=== PATIENT | female | born 1935 | race Caucasian/White ===

== ENCOUNTER 2017-06-20 09:31 | Outpatient (CLI) | payer BC ==
[~2017-06-20] VITALS: Ht 180.3 cm; Wt 79.1 kg
[~2017-06-20 09:31] MED LIST: ASPI-664 PO; COLE500G2 PO; FENO160T13 PO; GLIP5TAB13 PO; LISI10TA2 PO; METF500T4 PO; MULT1TAB59 PO
[2017-06-20 09:39] VITALS: BP 126/59; PULSE 95; RESP 18; Ht 180.3 cm; Wt 79.1 kg
[2017-06-20] MEDS ORDERED: LISI-313 PO (09:45)
[2017-06-20] MEDS ORDERED: METF-480 PO (09:45)
--- NOTE | 2017-06-20 10:34 | CONS ---
Date/Time of Note Date/Time of Note DATE: 06/20/17 TIME: 10:27 Assessment/Plan Assessment/Plan Additional Assessment/Plan [facility] INITIAL OUTPATIENT CONSULTATION NOTE DATE OF CONSULTATION: 06/20/17 PLACE OF SERVICE: [facility] ASSESSMENT AND PLAN: A very-pleasant 82 y/o lady well known to me from a year ago when she had gallstone pancreatitis, presenting with possible symptomatic biliary colic. I still strongly recommended a lap karsten and patient agreed. Answered all questions and consented her for the operation. With above assessment, I've recommended the followin. Elective lap karsten after her trip to [place] Thank you very much for having me involved in the care of this very pleasant patient and wonderful family. If you have any questions, please feel free to contact me at [phone]. Nature of presenting problem: moderate severity Please note that, given the multiple number of diagnoses or management options, the moderate amount and/or complexity of data needed to be reviewed, and moderate risk of complications and/or morbidity or mortality, this qualifies as high complexity type of decision-making. Disclaimers: 1. Inadvertent spelling and grammatical errors are likely due to electronic health record (EHR)/dictation software used and do not reflect on the quality of delivered patient care. 2. The electronic timestamp recorded on this note does not necessarily reflect the actual date and time of the visit or the service. 3. Portions of this note may have been created through electronic templates and computer algorithms that might bring in information either from the system or from other physicians and providers. Please note that such information may or may not contain errors, the occurrence of which are outside of my control. In general (but not always) this happens either in the beginning or at the end of the note. The portion of the note that I have created are generally done in 1 continuous block of text, flanked at the beginning and at the end by " ", and entered into one field in the EHR. 4. There may be other unanticipated errors in the note that are outside of my control. I can only attest to the portions of the note that I have created. Updated clinical summary: A very-pleasant, 81-year-old lady with comorbid issues, including hypertension, diabetes, and dyslipidemia who was admitted to [facility] on 05/18/2016 with what appeared to be gallstone pancreatitis. The patient's initial lipase level of 27,000 came down over the next few days, and the patient appeared to be clinically much improved. patient's images, including abdominal and pelvic CT, gallbladder ultrasound and MRI all pointed to significant cholelithiasis, without obvious evidence of pancreatic duct dilatation or a mass in the head of the pancreas. The common bile duct appeared to be normal and there was no major obvious evidence of choledocholithiasis. At that time, I strongly suggested that she undergo a laparoscopic cholecystectomy. The patient was hesitant and did not agree. I explained to her that the purpose for the operation was mainly a preventative reason to reduce the chance of repeat pancreatitis, up 30% of patients in her clinical condition, to approximately 0%, which is a normal risk in the general population. The patient appeared to understand and still wanted to wait a bit before deciding on the surgical intervention. D/c home 05/22/16 and repeat visit with me in the outpatient setting later that month resulted in the same decision by her. Returned a year later with one epidose on RUQ pain during a trip to [facility] May 2017. Comorbidities: 1. Hypertension 2. Diabetes mellitus with stage 3 chronic kidney disease; GFR 30-59; neuropathy ; peripheral artery disease 3. Dyslipidemia 4. Sigmoid diverticulosis without evidence of acute diverticulitis (CT abd/ pelvis [facility] 05/18/16) 5. Aortic vascular calcifications (CT abd/pelvis [facility] 05/18/16) 6. 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 Anemia 8. Cholelithiasis 9. Caloric malnutrition (reported in the chart, but no other obvious evidence; albumin 4.5 03/29/17) 10. Osteoarthritis of knee, unilateral 11. Shingles, for which the patient was treated with Valtrex and prednisone May 2016 12. Gallstone pancreatitis with hospitalization at [facility] May 2016 CONSULTATION REQUESTED BY: Michael Rodriguez MD Dear Dr. Rodriguez, Thank you very much for the oppurtunity to remain involved in the care of this very pleasant lady and her wonderful family. HISTORY OF PRESENT ILLNESS: The patient is a very pleasant 82 y/o lady well knwon to me from last year when she had gallstone pancreatitis, presenting with possible symptomatic biliary colic. RUQ pain occured during a trip to [place]. No hospitalization. Appetite ok. No blood in stool or urine. No pancreatitis. Health has otherwise been stable. No other major symptoms. ALLERGIES: NO KNOWN DRUG ALLERGIES MEDICATIONS Documented in the electronic records and reviewed by me. Please see the electronic records for details. SOCIAL HISTORY: The patient lives with her family. She does not report any smoking, drinking, or intravenous drug use. FAMILY HISTORY: There is no pertinent medical, surgical or malignancy reported in the family by the patient or in her chart. REVIEW OF SYSTEMS: An otherwise complete 14-point review of systems was negative for pertinent positives or pertinent negatives. PHYSICAL EXAMINATION GENERAL: The patient appears to be a very-pleasant, lady of non- descent, appearing stated age, sitting in a chair comfortably and in no acute distress. VITAL SIGNS: BMI 24.3 VPH 06/20/17 (previously 24.6 VPH May 2016), afebrile and vital signs are stable. HEENT: Head is normocephalic and atraumatic. Her extraocular muscles and hearing are grossly intact bilaterally and symmetrically. Her sclerae are nonicteric. Her oral cavity is clear and her oral mucosa appeared to be pink and moist. She has fair to poor dentition with some missing teeth. NECK: Supple. There is no lymphadenopathy or JVD. There is no submental, submandibular or supraclavicular lymphadenopathy. CHEST: Rises symmetrically with each breath and she is breathing comfortably. There are no audible wheezes, rales or rhonchi on the gross exam. Carotid pulses are palpable in her neck bilaterally and symmetrically. HEART: Radial pulse is palpable on the left wrist. Lower extremities contain no pitting edema around the ankles bilaterally and symmetrically. ABDOMEN: Soft, nondistended, and non-tender to palpation. There are no peritoneal signs or guarding. SKIN: Appears to be pink and feels warm to touch. NEUROLOGIC: Awake, alert, and follows commands appropriately. LABORATORY VALUES: May 2016: White blood cell count 15.6, down from 29.6 on admission; hemoglobin 11.4; platelets 229. Electrolytes are normal. CO2 22, creatinine 1.90 down from 2.07 yesterday. Total bilirubin 0.2; AST 49; ALT 86; alkaline phosphatase 60; albumin 3.2; amylase 467; lipase 1,603. Mar 2017: unremarkable; Cr 1.43. IMAGING: See electronic chart. Please note that I've personally reviewed all pertinent available images and I agree in general with their overall reported findings. Consultation Date/Type/Reason Admit Date/Time Exam/Review of Systems Vital Signs Vitals Vital Signs Date Time Temp Pulse Resp B/P Pulse Ox O2 Delivery O2 Flow Rate FiO2 06/20/17 09:39 97.8 95 18 126/59 94 Room Air HARSH WOOD M.D. Jun 20, 2017 10:34
== END 2017-06-20 15:51 | disposition home or self-care (01) ==
LOC: HPC 09:31
PROVIDERS: ATTEND Transplant Surgery
DX: K85.10 Biliary acute pancreatitis without necrosis or infection (principal); I10 Essential (primary) hypertension; E11.9 Type 2 diabetes mellitus without complications; E78.5 Hyperlipidemia, unspecified; D64.9 Anemia, unspecified; M17.10 Unilateral primary osteoarthritis, unspecified knee; E46 Unspecified protein-calorie malnutrition
CPT/HCPCS: G0463

== ENCOUNTER 2017-07-24 05:52 | Observation (INO) | payer BC ==
[2017-07-24] VITALS (28 sets, daily range): BP systolic 92–150; BP diastolic 36–80; PULSE 18–88; RESP 15–20; Ht 177.8 cm; Wt 73.8 kg
[~2017-07-24] VITALS: Ht 177.8 cm; Wt 73.8 kg
[~2017-07-24 05:52] MED LIST changes: +LISI-313 PO; -LISI10TA2 PO; +METF-480 PO; -METF500T4 PO
[2017-07-24] MEDS ORDERED: CEFAZOLIN 2 GM/50 ML (PMX) 50 ML IVPB SCH (06:30)
[2017-07-24] MEDS ORDERED: D5W-0.45 NACL + KCL 20 MEQ 1,000 ML IV SCH (06:30)
[2017-07-24] MEDS ORDERED: BUPIVACAINE 0.5%/EPI (SDV) 30 ML INJ ONE (06:55)
--- NOTE | 2017-07-24 07:33 | HPN ---
Date/Time of Note Date/Time of Note DATE: 07/24/17 TIME: 07:33 Interval H&P Admission Note Pt. seen H&P reviewed: No system changes Pt. seen H&P reviewed. No system changes (I attest that I have seen and examined the patient and reviewed the operation in detail, as well as its risks , benefits and alternatives of the operation). I attest that I have seen and examined the patient and reviewed in detail the operation, and its associated risks, benefits and alternative. I have answered all the patient's questions to the best of my ability and the patient wishes to proceed. Please refer to rest of electronic medical record for additional updates. HARSH WOOD M.D. Jul 24, 2017 07:33
[2017-07-24] MEDS ORDERED: LIDOCAINE 2% (SDV) 5 ML INJ ONE (07:36)
[2017-07-24] MEDS ORDERED: GLYCOPYRROLATE 0.4 MG INJ ONE (07:36)
[2017-07-24] MEDS ORDERED: PROPOFOL 20 ML ONE (07:36)
[2017-07-24] MEDS ORDERED: SUCCINYLCHOLINE CHLORIDE 100 MG/5 ML SYG IV ONE (07:36)
[2017-07-24] MEDS ORDERED: ROCURONIUM 50 MG INJ ONE (07:36)
[2017-07-24] MEDS ORDERED: NEOSTIGMINE 3 MG/3 ML SYRINGE ONE (07:37)
[2017-07-24] MEDS ORDERED: MEPERIDINE 100 MG INJ ONE (07:37)
[2017-07-24] MEDS ORDERED: FER325 PO (07:41)
[2017-07-24] MEDS ORDERED: METOCLOPRAMIDE 10 MG INJ ONE (08:09)
[2017-07-24] MEDS ORDERED: ONDANSETRON 4 MG INJ ONE (08:09)
[2017-07-24] MEDS ORDERED: CEFAZOLIN 1 GM INJ ONE (08:09)
[2017-07-24] MEDS ORDERED: EPHEDrine SULFATE 50 MG/5 ML SYG ONE (08:26)
[2017-07-24] MEDS ORDERED: hydrALAzine 20 MG INJ IV PRN (08:30)
[2017-07-24] MEDS ORDERED: OXYCODONE/ACETAMINOPHEN (5/325) TAB PO PRN ×2 (08:30)
[2017-07-24] MEDS ORDERED: EPHEDrine SULFATE 50 MG/5 ML SYG IV PRN (08:30)
[2017-07-24] MEDS ORDERED: METOCLOPRAMIDE 10 MG INJ IV PRN (08:30)
[2017-07-24] MEDS ORDERED: ONDANSETRON 4 MG INJ IV PRN (08:30)
[2017-07-24] MEDS ORDERED: MEPERIDINE 25 MG INJ IV PRN (08:30)
[2017-07-24] MEDS ORDERED: LABETALOL HCL 20MG INJ IV PRN (08:30)
[2017-07-24] MEDS ORDERED: FENTAnyl 50 MCG/ML VIAL IV PRN ×3 (08:30)
[2017-07-24] MEDS ORDERED: DIPHENHYDRAMINE 50 MG INJ IV PRN (08:30)
[2017-07-24] MEDS ORDERED: MIDAZOLAM 1 MG/ML 2 ML INJ IV PRN (08:30)
[2017-07-24] MEDS ORDERED: HYDROmorphONE (0.2 MG/ML) 10ML SYG IV PRN ×3 (08:30)
[2017-07-24] MEDS ORDERED: HYDROmorphONE 1 MG/ML SYG IV PRN (10:30)
[2017-07-24] MEDS ORDERED: DOCUSATE SODIUM 100 MG CAP PO PRN (10:30)
[2017-07-24] MEDS ORDERED: NA PHOSPHATE/BIPHOS 133 ML ENEMA PR PRN (10:30)
[2017-07-24] MEDS ORDERED: BISACODYL 10 MG SUPP PR PRN (10:30)
[2017-07-24] MEDS ORDERED: HYDROCODONE/APAP (5/325) TAB PO PRN ×2 (10:30)
[2017-07-24] MEDS ORDERED: HYDROmorphONE 0.5 MG/0.5 ML SYG IV PRN (10:30)
--- NOTE | 2017-07-24 11:02 | OPR ---
Date/Time of Note Date/Time of Note DATE: 07/24/17 TIME: 11:01 Operative Report Free Text/Dictation [facility] INPATIENT OPERATIVE NOTE PLACE OF SERVICE: [facility] DATE OF SURGERY: 07/24/2017 PREOPERATIVE DIAGNOSIS: 1. Gallstone pancreatitis with hospitalization at [facility] May 2016; known cholelithiasis 2. Hypertension 3. Diabetes mellitus with stage 3 chronic kidney disease; GFR 30-59; neuropathy ; peripheral artery disease 4. Dyslipidemia 5. Aortic vascular calcifications (CT abd/pelvis [facility] 05/18/16) 6. 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 Anemia 8. Cholelithiasis 9. Caloric malnutrition (reported in the chart, but no other obvious evidence; albumin 4.5 03/29/17) 10. Osteoarthritis of knee, unilateral 11. Shingles, for which the patient was treated with Valtrex and prednisone May 2016 12. Sigmoid diverticulosis without evidence of acute diverticulitis (CT abd/ pelvis [facility] 05/18/16) POSTOPERATIVE DIAGNOSIS: 1. Severe chronic cholecystitis with pus in the gallbladder; history of gallstone pancreatitis with hospitalization at [facility] May 2016; known cholelithiasis 2. Hypertension 3. Diabetes mellitus with stage 3 chronic kidney disease; GFR 30-59; neuropathy ; peripheral artery disease 4. Dyslipidemia 5. Aortic vascular calcifications (CT abd/pelvis [facility] 05/18/16) 6. 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 Anemia 8. Cholelithiasis 9. Caloric malnutrition (reported in the chart, but no other obvious evidence; albumin 4.5 03/29/17) 10. Osteoarthritis of knee, unilateral 11. Shingles, for which the patient was treated with Valtrex and prednisone May 2016 12. Sigmoid diverticulosis without evidence of acute diverticulitis (CT abd/ pelvis [facility] 05/18/16) OPERATION: 1. Laparoscopic partial cholecystectomy () 2. Laparoscopic suture closure of opening of cystic duct SURGEON: Harsh Wood M.D. BADGER DISTILLER OPERATOR: None ANESTHESIA: General endotracheal tube anesthesia ANESTHESIOLOGIST: Ron Duff M.D. BRIEF SUMMARY: An otherwise uncomplicated but very challenging laparoscopic partial cholecystectomy was performed with findings of severe chronic cholecystitis with gallbladder full of pus secondary to significant cholelithiasis with 2 very large stones blocking the infundibulum and cystic duct opening of the gallbladder. Updated clinical summary: A very-pleasant, 81-year-old lady with comorbid issues, including hypertension, diabetes, and dyslipidemia who was admitted to [facility] on 05/18/2016 with what appeared to be gallstone pancreatitis. The patient's initial lipase level of 27,000 came down over the next few days, and the patient appeared to be clinically much improved. patient's images, including abdominal and pelvic CT, gallbladder ultrasound and MRI all pointed to significant cholelithiasis, without obvious evidence of pancreatic duct dilatation or a mass in the head of the pancreas. The common bile duct appeared to be normal and there was no major obvious evidence of choledocholithiasis. At that time, I strongly suggested that she undergo a laparoscopic cholecystectomy. The patient was hesitant and did not agree. I explained to her that the purpose for the operation was mainly a preventative reason to reduce the chance of repeat pancreatitis, up 30% of patients in her clinical condition, to approximately 0%, which is a normal risk in the general population. The patient appeared to understand and still wanted to wait a bit before deciding on the surgical intervention. D/c home 05/22/16 and repeat visit with me in the outpatient setting later that month resulted in the same decision by her. Returned a year later with one epidose on RUQ pain during a trip to [facility] May 2017. Comorbidities: 1. Hypertension 2. Diabetes mellitus with stage 3 chronic kidney disease; GFR 30-59; neuropathy ; peripheral artery disease 3. Dyslipidemia 4. Sigmoid diverticulosis without evidence of acute diverticulitis (CT abd/ pelvis [facility] 05/18/16) 5. Aortic vascular calcifications (CT abd/pelvis [facility] 05/18/16) 6. 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 Anemia 8. Cholelithiasis 9. Caloric malnutrition (reported in the chart, but no other obvious evidence; albumin 4.5 03/29/17) 10. Osteoarthritis of knee, unilateral 11. Shingles, for which the patient was treated with Valtrex and prednisone May 2016 12. Gallstone pancreatitis with hospitalization at [facility] May 2016 BRIEF HISTORY: The patient is a very pleasant 82 y/o lady well known to me from a year ago when she had gallstone pancreatitis, presenting with possible symptomatic biliary colic. Please see above summary for further details. I recommended laparoscopic, possible open cholecystectomy both to reduce chances of further gallstone pancreatitis in the future as well as hopefully treat the low-grade symptoms that the patient had which I believed were coming from the gallbladder. We reviewed the operation in detail as well as the risks, benefits , alternatives, and expected outcomes of this operation. After careful consideration of all the risks, benefits, and alternatives, the patient (no family present during any of my discussions with the patient) appeared to understand those risks and wished to proceed with surgery. For a detailed report of my consultation with patient, please refer to my separate consultation note. STATEMENT OF THE INFORMED CONSENT: The patient appeared to understand the risks of the operation to include, but not be limited to risk of postoperative pain and scar tissue, possible infection or bleeding requiring other interventions such as opening the wound, placement of drainage catheters, or other operative interventions; possible injury to surrounding to structures including bowel, bladder, bile duct, or blood vessels, or solid organs such as liver, kidney, or pancreas requiring other interventions or procedures; possible leakage of bile from surgical clip sites, suture lines, or worse, from common bile duct injury, causing significant increase in morbidity and mortality and requiring multiple interventions including but not limited to, placement of drainage catheters, imaging studies, as well as operative interventions; possible other source of sepsis such as urinary tract infections or pneumonias, or other sources of potentially life threatening problems such as deep venous thrombus formation causing pulmonary embolism, myocardial arrhythmias and infarctions, and even . After careful consideration of all their options, the patient appeared to understand and wished to proceed with surgery. DESCRIPTION OF PROCEDURE: After obtaining informed consent, the patient was brought into the operating room and was placed in a normal supine position, where successful general endotracheal tube anesthesia was performed. The patient 's abdominal skin was prepped and draped, from the nipple line down to the level of the groins, in the usual sterile fashion. Intravenous access was already in place, and appropriately chosen and dosed prophylactic intravenous antimicrobials were administered. We then called a surgical time-out where patient's identification, date of , nature of the operation, allergies, presence of intravenous antimicrobials, presence of needed equipment, and any other concerns were reviewed and agreed upon by all members of the operating room team. We then started the operation by placing a 5-mm skin incision in the right- upper quadrant, subcostal midclavicular line, and introduced a 5-mm [employer] trocar into the peritoneal space, visualizing all the layers of the abdominal wall as we entered. Note that there was no indication of any injury to underlying structures once we entered the peritoneum. We insufflated the abdominal cavity to a maximum pressure of 15 mmHg, again, confirmed lack of any injury to underlying structures prior to visualizing the rest of the abdominal cavity. We found omentum essentially covering the area of the right upper quadrant especially the right edge of liver. There was also omental adhesions up to the midline below the umbilicus. There was no evidence of malignancy. No evidence of calcifications or significant issues with other obvious abnormalities. The liver appeared to be healthy. With this information, we went a head and placed the other trocars under direct visualization, after injecting their sites with 0.5% Marcaine with epinephrine, placing a 5-mm trocar in the umbilical midline area, a 5-mm trocar in the right anterior axillary line, and a 12-mm trocar in the midline subxiphoid region. With our instruments in place, we had excellent visualization and access to the right-upper quadrant. We then started a very meticulous and prolonged process of doing adhesio lysis and dissection in order to be able to take the omental adhesions off of what we believed to be the body of the gallbladder. This area appeared to be significantly scarred and indicated chronic cholecystitis for a prolonged period of time. The body of the duodenum was plastered to the medial aspect of the swollen gallbladder. The transverse colon was close to but not densely adherent onto the gallbladder wall itself. With very careful dissection, I was able to slowly dissect the omentum off the body of the gallbladder and moving from a lateral to medial position eventually the body of duodenum from the medial aspect of the gallbladder. At this point, pus started pouring out of the body of the gallbladder and we suctioned all of this of without any spillage. There was no bile within the gallbladder. There were several stones within the gallbladder, 2 of which were significant in size and appeared to be completely blocking the infundibulum and opening of the cystic duct. I used a stone single wire saw operator and removed all the smaller gallstones. We then dislodged the 2 large stones and laid them in the right gutter in a place where we could find them later. We also had put in up to 2 Raytek in the abdominal cavity and used these to help push the liver up to gain exposure as well as to maintain hemostasis. There was thickening of gallbladder wall, but this was mainly associated with the stones that were present. No obvious overt signs of malignancy existed. After very careful study of the anatomic structures, I decided not to continue the dissection down towards the cystic duct since essentially the entire area was fused onto the shazia hepatis. In my opinion, further dissection would endanger the structures and would not have meaningful benefit for the patient. I used cautery to remove the dissected gallbladder off the shazia hepatis leaving enough edges in order for us to perform laparoscopic suture closure of this area which we accomplished using 3-0 Vicryl sutures. This came together very nicely and there was no leakage of bile and the area appeared to be hemostatic. There was also no concern of injury to underlying shazia hepatis structures in the liver appear to remain viable without any color change. I then used an Endo Catch bag to remove both the partial cholecystectomy specimen as well as the 2 large stones which we crushed inside of the bag and removed through the 12 mm trocar site without having to make the site larger. The specimen was sent along with the gallstones to pathology for permanent sections. We then returned to the abdominal cavity and placed a 19 Wolof Mario drain through the right upper quadrant 5 mm trocar sites, fixing the drain to skin using 2-0 nylon suture and laying the tip of the drain in the area of the surgical dissection site near the shazia hepatis and the cystic duct closure. We then ensured that there was adequate hemostasis and bile-stasis prior to removal of all of or equipment, including the 2 Raytek that we had an side as well as the pneumoperitoneum, and then reapproximating the 12-mm trocar site with one [id number] 0 Vicryl suture, followed by washing the wounds with copious amounts of normal saline, and then reapproximating the skin using interrupted 4-0 Monocryl sutures. Light dressing was then applied. At the end of the operation, both the sponge count and needle count were reportedly correct x2. The patient tolerated the procedure without any reported complications. Please note that this operation qualifies for modifier 22 given the degree of difficulty of the case as well as the complexity of decision making. ESTIMATED BLOOD LOSS: 30 mL BLOOD OR BLOOD PRODUCT TRANSFUSIONS: None to my knowledge. SPECIMENS: 1. Gallbladder GRAFTS: None COMPLICATIONS: None. DISPOSITION: Recovery area. Disclaimers: 1. Inadvertent spelling and grammatical errors are likely due to electronic health record (EHR)/dictation software used and do not reflect on the quality of delivered patient care. 2. The electronic timestamp recorded on this note does not necessarily reflect the actual date and time of the visit or the service. 3. Portions of this note may have been created through electronic templates and computer algorithms that might bring in information either from the system or from other physicians and providers. Please note that such information may or may not contain errors, the occurrence of which are outside of my control. In general (but not always) this happens either in the beginning or at the end of the note. The portion of the note that I have created are generally done in 1 continuous block of text, flanked at the beginning and at the end by " ", and entered into one field in the EHR. 4. There may be other unanticipated errors in the note that are outside of my control. I can only attest to the portions of the note that I have created. HARSH WOOD M.D. Jul 24, 2017 11:02
--- NOTE | 2017-07-24 14:18 | CONS ---
Date/Time of Note Date/Time of Note DATE: 07/24/17 TIME: 14:08 Assessment/Plan Assessment/Plan Chief Complaint/Hosp Course 82-year-old female with a known history of gallstone pancreatitis, diverticulosis without diverticulitis, type 2 diabetes, hypertension, hyperlipidemia who was brought to [facility] for laparoscopic cholecystectomy. 1.Cholecystitis/cholelithiasis with gallbladder empyema. Status post Laparoscopic partial cholecystectomy-07/24/2017. -Postoperative antibiotics, anticoagulation, and diet per surgery team. -Continue pain medications PRN. 2. Type 2 diabetes. -Obtain A1c. Hold oral agents and patient will be started on Accu-Cheks/ISS/ Lantus in-house. 3. Essential hypertension. Stable. -Resume home medications. 4. Hypercholesterolemia/triglyceridemia. -Resume home medications. 5. Iron deficiency anemia. -Resume oral iron supplements. Monitor H&H. DVT prophylaxis: Per surgery. Rest of the recommendation depends on hospital course. Approximately 60 minutes was spent on this consultation. Thank you for allowing us to partake in the care of this pleasant lady. Patient was seen in collaboration with . Problems: Consultation Date/Type/Reason Admit Date/Time Jul 24, 2017 at 10:48 Type of Consultation: Internal medicine/hospitalist Reason for Consultation Postoperative medical management Referring Provider: HARSH WOOD M.D. Hx of Present Illness This is a very pleasant 82-year-old female with a past medical history of hypertension, hypercholesterolemia, type 2 diabetes, hysterectomy, gallstone pancreatitis, diverticulosis without diverticulitis, who was brought to [facility] for laparoscopic cholecystectomy. Apparently, patient was admitted at [facility] a year ago and at that time she was treated for gallstone pancreatitis with the recommendation of eventual cholecystectomy as outpatient. However, patient was not able to follow-up with outpatient surgery team until a year later then she had another episode of right -sided abdominal pain while she was having a trip to [place] in May 2017. Hospitalist consult was requested for postoperative medical management. At my encounter with the patient, she denied any chest pain, palpitation, shortness of breath, nausea, vomiting, abdominal pain, diarrhea, constipation, fever, chills, loss of consciousness or other constitutional symptoms. Patient is now postoperative from laparoscopic cholecystectomy. Currently there is no labs to review. Patient has a POC glucose of 191. A 12 point review of system was assessed and is negative other than what is mentioned in HPI. Past Medical History See HPI Past Surgical History See HPI Social History Former smoker. No other substance abuse history or alcohol history. Smoking Status: Former smoker Exam/Review of Systems Vital Signs Vitals Vital Signs Date Time Temp Pulse Resp B/P Pulse Ox O2 Delivery O2 Flow Rate FiO2 07/24/17 13:18 98.0 87 18 136/63 99 Nasal Cannula 2.0 Exam General: Well developed,adequately built, not in any acute distress . HEENT: Normocephalic, Atraumatic, No laceration or hematoma; Eyes: PEERL, Conjunctiva clear, Anicteric sclera Neck: Supple without any lymphadenopathy, nontender, no JVD, no carotid bruits, trachea midline, no thyromegaly Cardiac: S1, S2 auscultated, regular rhythm and rate, no mumurs or gallop Pulmonary: Normal respiratory effort. Chest clear to auscultation bilaterally, no adventitious breath sounds GI: Laparoscopic abdominal incision site with intact dressing. Very minimal tenderness to surgical area. Abdomen normal to inspection. Soft, non- distended, no masses, no rebound tenderness or guarding. Bowel sounds active on all four quadrants Genitourinary: Deferred Extremities: No cyanosis, clubbing, or edema. Pulses [2+] bilaterally. Full ROM on all four extremities. No focal weakness appreciated. Neurologic: Alert to person, place, time, and situation. Affect appropriate, intact sensation. Skin: Clean,dry, and intact. No ecchymosis, no rashes, or lesions Results Results 24 hrs Laboratory Tests Test 07/24/17 06:50 07/24/17 11:47 Bedside Glucose 135 191 Medications Medications Current Medications Cefazolin Sodium/ Dextrose (Ancef 2 Gm/50 ml (Pmx)) 50 ml @ 100 mls/hr OC IVPB ; Start 07/24/17 at 06:30; Stop 07/24/17 at 19:00 Acetaminophen/ Hydrocodone Bitart ([place] (5/325)) 1 tab Q4H PRN PO PAIN LEVEL 4 -7; Start 07/24/17 at 10:30 Acetaminophen/ Hydrocodone Bitart ([place] (5/325)) 2 tab Q4H PRN PO PAIN LEVEL 7 -10; Start 07/24/17 at 10:30 Hydromorphone HCl (Dilaudid) 0.5 mg Q2 PRN IV PAIN; Start 07/24/17 at 10:30 Hydromorphone HCl (Dilaudid) 1 mg Q2 PRN IV PAIN; Start 07/24/17 at 10:30 Docusate Sodium (Colace) 100 mg BID PRN PO CONSTIPATION; Start 07/24/17 at 10: 30 Bisacodyl (Dulcolax Supp) 10 mg BID PRN [place] CONSTIPATION; Start 07/24/17 at 10: 30 Sodium Biphosphate/ Sodium Phosphate (Fleet Enema) 133 ml BID PRN [place] CONSTIPATION; Start 07/24/17 at 10:30 Famotidine (Pepcid Iv) 20 mg DAILY IV ; Start 07/25/17 at 09:00 Enoxaparin Sodium 40 mg 40 mg DAILY SC ; Start 07/25/17 at 09:00 Potassium Chloride/Sodium Chloride (NS-KCl 20 Meq) 1,000 ml @ 100 mls/hr Q10H IV ; Start 07/24/17 at 14:00; Status UNV Ferrous Sulfate (Ferrous Sulfate (Ec)) 325 mg BID PO ; Start 07/24/17 at 21:00 ; Status UNV Lisinopril (Zestril) 5 mg DAILY PO ; Start 07/25/17 at 09:00; Status UNV Multivitamins Therapeutic (Theragran) 1 tab DAILY PO ; Start 07/25/17 at 09:00 ; Status UNV Miscellaneous Information 1 gm BID PO ; Start 07/24/17 at 21:00; Status UNV Miscellaneous Information 160 mg DAILY PO ; Start 07/25/17 at 09:00; Status UNV TONIE HASKINS NP Jul 24, 2017 14:18
[2017-07-24] MEDS: NS + KCL 20 MEQ 1,000 ML IV SCH (15:39)
[2017-07-24] MEDS: INSULIN ASPART [NOVOLOG] 3 ML PEN SC SCH ×2 (17:55→20:29)
[2017-07-24] MEDS ORDERED: INSULIN GLARGINE [LANtus] 3 ML PEN SC SCH (20:00)
[2017-07-24] MEDS: FERROUS SULFATE (EC) 325 MG TAB PO SCH (20:32)
[2017-07-25] VITALS: BP 133/61; RESP 19
[2017-07-25] MEDS: NS + KCL 20 MEQ 1,000 ML IV SCH ×2 (01:08→10:00)
[2017-07-25 02:00] VITALS: BP 126/58; RESP 18
[2017-07-25] MEDS ORDERED: ACCU-CHEK XX SCH (02:00)
[2017-07-25 05:40] LABS: BASOPHILS % 0.2 % (0.0-2.0); EOSINOPHILS % 0.2 % (0.0-7.0); HEMATOCRIT 26.3 % (37.0-47.0); HEMOGLOBIN 8.1 g/dl (12.0-16.0); LYMPHOCYTES # 1.3 10^3/ul (0.8-2.9); LYMPHOCYTES % 13.6 % (15.0-51.0); MEAN CORPUSCULAR HEMOGLOBIN 27.6 pg (29.0-33.0); MEAN CORPUSCULAR HGB CONC 30.8 g/dl (32.0-37.0); MEAN CORPUSCULAR VOLUME 89.5 fl (82.0-101.0); MEAN PLATELET VOLUME 10.3 fl (7.4-10.4); MONOCYTE # 0.7 10^3/ul (0.3-0.9); MONOCYTES % 6.8 % (0.0-11.0); NEUTROPHIL # 7.7 10^3/ul (1.6-7.5); NEUTROPHILS % 78.7 % (39.0-77.0); PLATELET COUNT 274 10^3/UL (140-415); RED BLOOD COUNT 2.94 10^6/ul (4.20-5.40); RED CELL DISTRIBUTION WIDTH 18.3 % (11.5-14.5); WHITE BLOOD COUNT 9.8 10^3/ul (4.8-10.8)
[2017-07-25 05:42] VITALS: BP 114/54; PULSE 80; RESP 17
[2017-07-25 06:10] LABS: ALBUMIN 2.9 g/dl (3.3-4.9); ALBUMIN/GLOBULIN RATIO 0.85; BILIRUBIN,INDIRECT 0.4 mg/dl (0-1.1); BILIRUBIN,TOTAL 0.4 mg/dl (0.2-1.3); CALCIUM 8.1 mg/dl (8.4-10.2); CREATININE 1.21 mg/dl (0.44-1.00); POTASSIUM 4.7 mmol/L (3.5-5.1); TOTAL PROTEIN 6.3 g/dl (6.1-8.1)
[2017-07-25 06:11] LABS: INR 1.21; PROTIME 15.4 Sec (12.2-14.2); PT RATIO 1.2
[2017-07-25 06:12] LABS: PARTIAL THROMBOPLASTIN TIME 32.1 Sec (25.0-35.0)
[2017-07-25 06:14] LABS: CALCIUM 8.1 mg/dl (8.4-10.2); MAGNESIUM 1.6 mg/dl (1.7-2.5); PHOSPHORUS 3.4 mg/dl (2.5-4.9)
[2017-07-25 06:56] LABS: CHOL/HDL RATIO 4.4 RATIO
[2017-07-25 07:28] LABS: THYROID STIMULATING HORMONE 1.01 MIU/L (0.465-4.680)
[2017-07-25] MEDS: INSULIN ASPART [NOVOLOG] 3 ML PEN SC SCH ×2 (07:50→13:01)
[2017-07-25 07:52] VITALS: BP 107/53; RESP 19
[2017-07-25] MEDS: FERROUS SULFATE (EC) 325 MG TAB PO SCH (08:37)
[2017-07-25] MEDS ORDERED: MULTIVITAMINS THERAPEUTIC TAB PO SCH (09:00)
[2017-07-25] MEDS ORDERED: FENOFIBRATE 145 MG TAB PO SCH (09:00)
[2017-07-25] MEDS ORDERED: LISINOPRIL 5 MG TAB PO SCH (09:00)
[2017-07-25] MEDS ORDERED: FAMOTIDINE 20 MG INJ IV SCH (09:00)
[2017-07-25] MEDS ORDERED: ENOXAPARIN 40 MG/0.4 ML SYG SC SCH (09:00)
--- NOTE | 2017-07-25 11:15 | CONS ---
Date/Time of Note Date/Time of Note DATE: 07/25/17 TIME: 11:13 Assessment/Plan Assessment/Plan Chief Complaint/Hosp Course 82-year-old female with a known history of gallstone pancreatitis, diverticulosis without diverticulitis, type 2 diabetes, hypertension, hyperlipidemia who was brought to [facility] for laparoscopic cholecystectomy. 1.Cholecystitis/cholelithiasis with gallbladder empyema. Status post Laparoscopic partial cholecystectomy-07/24/2017. -Postoperative antibiotics, anticoagulation, and diet per surgery team. -Continue pain medications PRN. 2. Type 2 diabetes-well controlled A1C 5.4. -on Accu-Cheks/ISS/Lantus in-house. 3. Essential hypertension. Stable. -Continue home medications. 4. Hypercholesterolemia/triglyceridemia. -Continue home medications. 5. Iron deficiency anemia. -on oral iron supplements. Monitor H&H. DVT prophylaxis: Per surgery. DC planning once cleared by surgery. Patient was seen in collaboration with . Problems: Consultation Date/Type/Reason Admit Date/Time Jul 24, 2017 at 10:48 Initial Consult Date Type of Consultation: Internal medicine/hospitalist Referring Provider: HARSH WOOD M.D. 24 HR Interval Summary Free Text/Dictation No acute distress. Exam/Review of Systems Vital Signs Vitals Vital Signs Date Time Temp Pulse Resp B/P Pulse Ox O2 Delivery O2 Flow Rate FiO2 07/25/17 08:15 Nasal Cannula 2.0 07/25/17 07:52 98.0 86 19 107/53 98 Intake and Output 07/24/17 07/24/17 07/25/17 15:00 23:00 07:00 Intake Total 850 ml 640 ml 800 ml Output Total 30 ml 20 ml 90 ml Balance 820 ml 620 ml 710 ml Exam General: Well developed,adequately built, not in any acute distress . HEENT: Normocephalic, Atraumatic, No laceration or hematoma; Eyes: PEERL, Conjunctiva clear, Anicteric sclera Neck: Supple without any lymphadenopathy, nontender, no JVD, no carotid bruits, trachea midline, no thyromegaly Cardiac: S1, S2 auscultated, regular rhythm and rate, no mumurs or gallop Pulmonary: Normal respiratory effort. Chest clear to auscultation bilaterally, no adventitious breath sounds GI: Laparoscopic abdominal incision site with intact dressing. Very minimal tenderness to surgical area. Abdomen normal to inspection. Soft, non- distended, no masses, no rebound tenderness or guarding. Bowel sounds active on all four quadrants Genitourinary: Deferred Extremities: No cyanosis, clubbing, or edema. Pulses [2+] bilaterally. Full ROM on all four extremities. No focal weakness appreciated. Neurologic: Alert to person, place, time, and situation. Affect appropriate, intact sensation. Skin: Clean,dry, and intact. No ecchymosis, no rashes, or lesions Results Result Diagram: 07/25/17 0451 07/25/17 0451 Results 24 hrs Laboratory Tests Test 07/24/17 11:47 07/24/17 18:31 07/24/17 20:27 07/25/17 04:51 Bedside Glucose 191 169 149 White Blood Count 9.8 # Red Blood Count 2.94 L Hemoglobin 8.1 L Hematocrit 26.3 L Mean Corpuscular Volume 89.5 Mean Corpuscular Hemoglobin 27.6 L Mean Corpuscular Hemoglobin Concent 30.8 L Red Cell Distribution Width 18.3 #H Platelet Count 274 Mean Platelet Volume 10.3 Neutrophils % 78.7 H Lymphocytes % 13.6 L Monocytes % 6.8 Eosinophils % 0.2 Basophils % 0.2 Nucleated Red Blood Cells % 0.0 Neutrophils # 7.7 H Lymphocytes # 1.3 Monocytes # 0.7 Eosinophils # 0.0 Basophils # 0.0 Nucleated Red Blood Cells # 0.0 Prothrombin Time 15.4 H Prothrombin Time Ratio 1.2 INR International Normalized Ratio 1.21 Activated Partial Thromboplast Time 32.1 Sodium Level 138 Potassium Level 4.7 Chloride Level 107 Carbon Dioxide Level 24 Anion Gap 12 Blood Urea Nitrogen 15 Creatinine 1.21 H Glucose Level 171 Hemoglobin A1c 5.4 Calcium Level 8.1 L Phosphorus Level 3.4 Magnesium Level 1.6 L Total Bilirubin 0.4 Direct Bilirubin 0.00 Indirect Bilirubin 0.4 Aspartate Amino Transf (AST/SGOT) 21 Alanine Aminotransferase (ALT/SGPT) 31 Alkaline Phosphatase 71 B-Type Natriuretic Peptide 575 H Total Protein 6.3 Albumin 2.9 L Globulin 3.40 H Albumin/Globulin Ratio 0.85 Triglycerides Level 139 Cholesterol Level 119 LDL Cholesterol, Calculated 64 HDL Cholesterol 27 L Cholesterol/HDL Ratio 4.4 Thyroid Stimulating Hormone (TSH) 1.010 Test 07/25/17 08:36 Bedside Glucose 135 Medications Medications Current Medications Acetaminophen/ Hydrocodone Bitart ([place] (5/325)) 1 tab Q4H PRN PO PAIN LEVEL 4 -7 Last administered on 07/25/17 04:29; Admin Dose 1 TAB; Start 07/24/17 at 10:30 Acetaminophen/ Hydrocodone Bitart ([place] (5/325)) 2 tab Q4H PRN PO PAIN LEVEL 7 -10; Start 07/24/17 at 10:30 Hydromorphone HCl (Dilaudid) 0.5 mg Q2 PRN IV PAIN; Start 07/24/17 at 10:30 Hydromorphone HCl (Dilaudid) 1 mg Q2 PRN IV PAIN; Start 07/24/17 at 10:30 Docusate Sodium (Colace) 100 mg BID PRN PO CONSTIPATION; Start 07/24/17 at 10: 30 Bisacodyl (Dulcolax Supp) 10 mg BID PRN [place] CONSTIPATION; Start 07/24/17 at 10: 30 Sodium Biphosphate/ Sodium Phosphate (Fleet Enema) 133 ml BID PRN [place] CONSTIPATION; Start 07/24/17 at 10:30 Famotidine (Pepcid Iv) 20 mg DAILY IV Last administered on 07/25/17 08:37; Admin Dose 20 MG; Start 07/25/17 at 09:00 Enoxaparin Sodium 40 mg 40 mg DAILY SC Last administered on 07/25/17 08:45; Admin Dose 40 MG; Start 07/25/17 at 09:00 Potassium Chloride/Sodium Chloride (NS-KCl 20 Meq) 1,000 ml @ 100 mls/hr Q10H IV Last administered on 07/25/17 01:08; Admin Dose 100 MLS/HR; Start at 14:00 Ferrous Sulfate (Ferrous Sulfate (Ec)) 325 mg BID PO Last administered on 07/25 08:37; Admin Dose 325 MG; Start 07/24/17 at 21:00 Lisinopril (Zestril) 5 mg DAILY PO Last administered on 07/25/17 08:38; Admin Dose 5 MG; Start 07/25/17 at 09:00 Multivitamins Therapeutic (Theragran) 1 tab DAILY PO Last administered on 07/25 08:37; Admin Dose 1 TAB; Start 07/25/17 at 09:00 Miscellaneous Information 1 gm BID XX ; Start 07/24/17 at 21:00; Status Future Hold Fenofibrate (Tricor) 145 mg DAILY PO Last administered on 07/25/17 08:37; Admin Dose 145 MG; Start 07/25/17 at 09:00 Diagnostic Test (Pha) (Accu-Chek) 1 ea 02 XX ; Start 07/25/17 at 02:00 Insulin Glargine (Lantus) 11 unit DAILY@20 SC Last administered on 07/24/17 20:36; Admin Dose 11 UNIT; Start 07/24/17 at 20:00 TONIE HASKINS NP Jul 25, 2017 11:15
[2017-07-25] MEDS ORDERED: GLUCOSE GEL 15 GRAM TUBE BUCCAL PRN (11:30)
[2017-07-25] MEDS ORDERED: GLUCAGON 1 MG INJ IM PRN (11:30)
[2017-07-25] MEDS ORDERED: GLUCOSE GEL 15 GRAM TUBE PO PRN ×2 (11:30)
[2017-07-25] MEDS ORDERED: DEXTROSE 50% 50 ML SYRINGE IV PRN ×2 (11:30)
[2017-07-25] MEDS ORDERED: MAGNESIUM SULFATE 2 GM/50 ML 50 ML IVPB ONE (12:00)
[2017-07-25 12:02] LABS: IRON 12 ug/dl (35-150)
[2017-07-25 12:13] LABS: TOTAL IRON BINDING CAPACITY 289 ug/dl (241-421)
--- NOTE | 2017-07-25 15:25 | PDOCDIS ---
Discharge Instructions CONDITION Patient Condition: Stable HOME CARE INSTRUCTIONS: Your diet recommendation is: Carbohydrate controlled diet. ACTIVITY: Activity Restrictions: Slowly Increase Activity Rest between Activity Avoid heavy lifting Bathing Restrictions: Shower FOLLOW UP/APPOINTMENTS Follow-up Plan 1. Cont regular diet 2. Check labs and d/c home if acceptable 3. F/u with me in a couple of weeks 4. Hydration is very important; needs to continue at home 5. D/c instructions: Please call [phone] if any of fever, nausea, vomiting, discharge from wound , wound redness, increase or sudden pain, blood in stool or vomit, or any other unusual signs or symptoms. Also, please call the same number in a few days to schedule an appointment for your follow up visit with . Patient may remove dressings tomorrow. Showers OK starting tomorrow. No swimming , hot tub or bath for 2 weeks. No lifting more than 25 lbs for 8 weeks. 1.Follow up with primary care physician in 1 week If you don't have one please let someone know, we can give you resources that may help you pick one. You may also call your insurance company to assign one to you. Review your medication list with your nurse before leaving and if you need new prescriptions please let your nurse know. I may have made changes to your home medications or given you new prescriptions, please let your primary doctor know as well. Stay compliant with your medications and report any side effects to your PCP or pharmacist. Return to the ER if you have any concerns and cannot reach your doctors or call your insurance company, they usually have a nurse that can help you. 2. Call 911 or go to the nearest emergency room if experiencing loss of consciousness, dizziness, chest pain, shortness of breath, vomiting/abdominal pain, speech difficulties, motor weakness or any unusual symptoms. TONIE HASKINS NP Jul 25, 2017 15:25
[2017-07-25] MEDS ORDERED: DOCU-144 PO (15:26)
[2017-07-25] MEDS ORDERED: HYDR-906 PO (15:26)
[2017-07-25 15:41] VITALS: BP 111/62; RESP 19
--- NOTE | 2017-07-25 15:46 | DS ---
Date/Time of Note Date/Time of Note DATE: 07/25/17 TIME: 15:38 Discharge Summary Admission/Discharge Info Admit Date/Time Jul 24, 2017 at 10:48 Discharge Date/Time Discharge Diagnosis 1.Cholecystitis/cholelithiasis with gallbladder empyema. Status post Laparoscopic partial cholecystectomy-07/24/2017. 2. Type 2 diabetes-well controlled A1C 5.4. 3. Essential hypertension. Stable. 4. Hypercholesterolemia/triglyceridemia. 5. Iron deficiency anemia. Patient Condition: Stable Consults ,Surgery Procedures Laparoscopic cholecystectomy on 07/24/2017. Hospital Course This is a very pleasant 82-year-old female patient who was admitted at [facility] a year ago and at that time she was treated for gallstone pancreatitis with the recommendation of eventual cholecystectomy as outpatient. However, patient was not able to follow-up with outpatient surgery team until a year later then she had another episode of right-sided abdominal pain while she was having a trip to [facility] in May 2017. She was then brought back to [facility] by surgery team for a laparoscopic cholecystectomy on 07/24/2017. Her comorbid conditions also include hypertension, hypercholesterolemia, type 2 diabetes, hysterectomy, gallstone pancreatitis, and diverticulosis without diverticulitis. Postoperatively, a hospitalist consult was requested for postoperative medical management. Postoperatively, the patient did well. She had a short postoperative course. She was continued on her home medication for underlying comorbid conditions. Patient did not require further interventions and was tolerating diet and activities. There was no postoperative infection, abdominal complication or bleeding. Her abdominal exam remained benign. Since the patient remained clinically stable, surgery team decided to discharge the patient with close outpatient follow-up. Patient was given prescription for pain meds stool softeners to avoid straining . Patient's discharge instructions include the following: "Please call [phone] if any of fever, nausea, vomiting, discharge from wound, wound redness, increase or sudden pain, blood in stool or vomit, or any other unusual signs or symptoms. Also, please call the same number in a few days to schedule an appointment for your follow up visit. Patient may remove dressings tomorrow. Showers OK starting tomorrow. No swimming , hot tub or bath for 2 weeks. No lifting more than 25 lbs for 8 weeks." Disposition home. Approximately 60 minutes was spent in coordinating the discharge on this patient. Patient was seen in collaboration with . Home Meds Active Scripts Glipizide* (Glipizide*) 5 Mg Tablet, 2.5 MG PO BID, #60 TAB Prov:EILEEN FAIR MD 06/05/16 Reported Medications Ferrous Sulfate* (Ferrous Sulfate*) 325 Mg Tabec, 325 MG PO BID, TAB 07/24/17 Lisinopril* (Lisinopril*) 5 Mg Tablet, 5 MG PO DAILY, #30 TAB 06/20/17 Metformin* (Glucophage*) 850 Mg Tablet, 850 MG PO WITH BREAKFAST DINNE, #60 TAB 06/20/17 Fenofibrate, Micronized* (Fenofibrate*) 160 Mg Tablet, 160 MG PO DAILY, TAB 06/02/16 Aspirin* (Aspirin* EC) 81 Mg Tablet.dr, 81 MG PO DAILY, TAB 06/02/16 Colestipol Hcl (Colestipol Hcl) 500 Gm Granules, 1 GM PO BID 05/18/16 Multivitamins* (Multivitamins*) 1 Each Tablet, 1 TAB PO DAILY, TAB 05/18/16 Follow-up Plan D/c instructions: Please call [phone] if any of fever, nausea, vomiting, discharge from wound , wound redness, increase or sudden pain, blood in stool or vomit, or any other unusual signs or symptoms. Also, please call the same number in a few days to schedule an appointment for your follow up visit with . Patient may remove dressings tomorrow. Showers OK starting tomorrow. No swimming , hot tub or bath for 2 weeks. No lifting more than 25 lbs for 8 weeks. 1.Follow up with primary care physician in 1 week If you don't have one please let someone know, we can give you resources that may help you pick one. You may also call your insurance company to assign one to you. Review your medication list with your nurse before leaving and if you need new prescriptions please let your nurse know. I may have made changes to your home medications or given you new prescriptions, please let your primary doctor know as well. Stay compliant with your medications and report any side effects to your PCP or pharmacist. Return to the ER if you have any concerns and cannot reach your doctors or call your insurance company, they usually have a nurse that can help you. 2. Call 911 or go to the nearest emergency room if experiencing loss of consciousness, dizziness, chest pain, shortness of breath, vomiting/abdominal pain, speech difficulties, motor weakness or any unusual symptoms. Primary Care Provider Not On Staff Doctor Pending Labs Laboratory Tests Test 07/24/17 18:31 07/24/17 20:27 07/25/17 04:45 07/25/17 04:51 Bedside Glucose 169mg/dL (70-220) 149mg/dL (70-220) Iron Level 12ug/dl (35-150) Total Iron Binding Capacity 289ug/dl (241-421) Percent Iron Saturation 4% SAT (22-52) White Blood Count 9.810^3/ul (4.8-10.8) Red Blood Count 2.9410^6/ul (4.20-5.40) Hemoglobin 8.1g/dl (12.0-16.0) Hematocrit 26.3% (37.0-47.0) Mean Corpuscular Volume 89.5fl (82.0-101.0) Mean Corpuscular Hemoglobin 27.6pg (29.0-33.0) Mean Corpuscular Hemoglobin Concent 30.8g/dl (32.0-37.0) Red Cell Distribution Width 18.3% (11.5-14.5) Platelet Count 03158^3/UL (140-415) Mean Platelet Volume 10.3fl (7.4-10.4) Neutrophils % 78.7% (39.0-77.0) Lymphocytes % 13.6% (15.0-51.0) Monocytes % 6.8% (0.0-11.0) Eosinophils % 0.2% (0.0-7.0) Basophils % 0.2% (0.0-2.0) Nucleated Red Blood Cells % 0.0/100WBC (0.0-0.0) Neutrophils # 7.710^3/ul (1.6-7.5) Lymphocytes # 1.310^3/ul (0.8-2.9) Monocytes # 0.710^3/ul (0.3-0.9) Eosinophils # 0.010^3/ul (0.0-0.5) Basophils # 0.010^3/ul (0.0-0.1) Nucleated Red Blood Cells # 0.010^3/ul (0.0-0.0) Prothrombin Time 15.4Sec (12.2-14.2) Prothrombin Time Ratio 1.2 INR International Normalized Ratio 1.21 Activated Partial Thromboplast Time 32.1Sec (25.0-35.0) Sodium Level 138mmol/L (135-144) Potassium Level 4.7mmol/L (3.5-5.1) Chloride Level 107mmol/L (97-110) Carbon Dioxide Level 24mmol/L (21-31) Anion Gap 12 (8-16) Blood Urea Nitrogen 15mg/dl (7-20) Creatinine 1.21mg/dl (0.44-1.00) Glucose Level 171mg/dl (70-220) Hemoglobin A1c 5.4% (0-5.9) Calcium Level 8.1mg/dl (8.4-10.2) Phosphorus Level 3.4mg/dl (2.5-4.9) Magnesium Level 1.6mg/dl (1.7-2.5) Total Bilirubin 0.4mg/dl (0.2-1.3) Direct Bilirubin 0.00mg/dl (0.00-0.20) Indirect Bilirubin 0.4mg/dl (0-1.1) Aspartate Amino Transf (AST/SGOT) 21IU/L (15-46) Alanine Aminotransferase (ALT/SGPT) 31IU/L (13-69) Alkaline Phosphatase 71IU/L (42-121) B-Type Natriuretic Peptide 575PG/ML (0-450) Total Protein 6.3g/dl (6.1-8.1) Albumin 2.9g/dl (3.3-4.9) Globulin 3.40g/dl (1.3-3.2) Albumin/Globulin Ratio 0.85 Triglycerides Level 139mg/dl (0-149) Cholesterol Level 119mg/dl (100-200) LDL Cholesterol, Calculated 64mg/dl HDL Cholesterol 27mg/dl (33-92) Cholesterol/HDL Ratio 4.4RATIO Thyroid Stimulating Hormone (TSH) 1.010MIU/L (0.465-4.680) Test 07/25/17 08:36 07/25/17 12:56 Bedside Glucose 135mg/dL (70-220) 195mg/dL (70-220) TONIE HASKINS V. SENIOR CLINICIAN Jul 25, 2017 15:46
--- NOTE | 2017-07-25 21:47 | PN ---
Date/Time of Note Date/Time of Note DATE: 07/25/17 TIME: 09:46 Assessment/Plan Lines/Catheters IV Catheter Type (from Nrsg): Peripheral IV Assessment/Plan Assessment/Plan [facility] Progress Note Date of Service: 07/25/17 Today's Impression & Plan: Overall doing well post op without major issues. No major wound problems. With above assessment, I've recommended the following for today: 1. Ok to d/c from my standpoint once medically stable 2. D/c instructions: Please call [phone] if any of fever, nausea, vomiting, discharge from wound , wound redness, increase or sudden pain, blood in stool or vomit, or any other unusual signs or symptoms. Also, please call the same number in a few days to schedule an appointment for your follow up visit. Patient may remove dressings tomorrow. Showers OK starting tomorrow. No swimming , hot tub or bath for 2 weeks. No lifting more than 25 lbs for 8 weeks. Nature of presenting problem: High risk Thank you again for your great care of this very pleasant patient and wonderful family. If there are any questions, please feel free to call me at [phone]. Disclaimer: Inadvertent spelling or grammatical errors are likely due to EHR/ dictation software use and do not reflect on the overall quality of patient care. Subjective: No major events or complaints; no major abd pain and under control with medications; no n/v/d; no sob or cp; ? flatus; - BM; - activity Objective: Vitals: See below Exam: GENERAL: On exam, the patient was laying in bed and appeared to be comfortable and in no acute distress. ABDOMEN: Soft, nontender and nondistended. Incision dressings are clean, dry and intact without any evidence of erythema, edema, discharge, or hernia. Drain ss and d/c'd at bedside without any difficulty. There are no peritoneal signs or guarding. SKIN: Skin appears to be pink and feels warm to touch. NEUROLOGIC: Patient is awake, alert, and follows commands appropriately. Exam/Review of Systems Vital Signs Vitals Vital Signs Date Time Temp Pulse Resp B/P Pulse Ox O2 Delivery O2 Flow Rate FiO2 07/25/17 15:41 97.0 71 19 111/62 98 07/25/17 08:15 Nasal Cannula 2.0 Intake and Output 07/24/17 07/24/17 07/25/17 15:00 23:00 07:00 Intake Total 850 ml 640 ml 800 ml Output Total 30 ml 20 ml 90 ml Balance 820 ml 620 ml 710 ml Results Result Diagram: 07/25/17 0451 07/25/17 0451 HARSH WOOD M.D. Jul 25, 2017 21:47
== END 2017-07-25 18:00 | disposition home or self-care (01) ==
LOC: SDS 05:52 → REC 10:48 → SDS 10:48 → MS1 13:06
PROVIDERS: ADMIT Transplant Surgery; ATTEND Transplant Surgery
DX: K80.10 Calculus of gallbladder with chronic cholecystitis without obstruction (principal); K85.90 Acute pancreatitis without necrosis or infection, unspecified; I12.9 Hypertensive chronic kidney disease with stage 1 through stage 4 chronic kidney disease, or unspecified chronic kidney disease; E11.22 Type 2 diabetes mellitus with diabetic chronic kidney disease; N18.3 Chronic kidney disease, stage 3 (moderate); E11.40 Type 2 diabetes mellitus with diabetic neuropathy, unspecified; E78.00 Pure hypercholesterolemia, unspecified; D50.9 Iron deficiency anemia, unspecified; M17.10 Unilateral primary osteoarthritis, unspecified knee; I73.9 Peripheral vascular disease, unspecified; Z90.710 Acquired absence of both cervix and uterus; I70.0 Atherosclerosis of aorta; K57.90 Diverticulosis of intestine, part unspecified, without perforation or abscess without bleeding; B02.9 Zoster without complications; K66.0 Peritoneal adhesions (postprocedural) (postinfection); D64.9 Anemia, unspecified; E46 Unspecified protein-calorie malnutrition; Z86.018 Personal history of other benign neoplasm; Z79.4 Long term (current) use of insulin; Z79.84 Long term (current) use of oral hypoglycemic drugs; Z87.891 Personal history of nicotine dependence; Z83.3 Family history of diabetes mellitus; Z80.0 Family history of malignant neoplasm of digestive organs
CPT/HCPCS: 47562; 80053; 80061; 82310; 82962; 83036; 83540; 83735; 83880; 84100; 84443; 85025; 85610; 85730; 88304; G0378; J0690; J1650; J1815; J2175; J2405; J2710; J2765; J3475; J3480

== ENCOUNTER 2017-08-15 09:05 | Outpatient (CLI) | END 2017-08-15 17:00 | disposition home or self-care (01) ==